=== PATIENT | female | born 1940 | race Caucasian/White ===

== ENCOUNTER → 2024-08-07 10:31 | Outpatient (REF) | payer MEDICARE, BC, SELFPAY | LOC: HWCARD 10:31 | PROVIDERS: ATTENDING PHYSICIAN Pain Medicine Interventional Pain Medicine; FAMILY PHYSICIAN Internal Medicine | DX: Z01.818 Encounter for other preprocedural examination (principal) | CPT/HCPCS: 93005 ==

== ENCOUNTER 2024-11-30 15:58 | Emergency (ER) | payer MEDICARE, BC, SELFPAY ==
[2024-11-30 16:05] VITALS: BP 144/77
--- NOTE | 2024-11-30 19:40 | ED.MUSCINJ ---
HPI-Injury
General
Chief Complaint: Fall
Time Seen by Provider: 11/30/24 19:26
Nursing documentation reviewed up to this point in time: agreed with
History of Present Illness-Injury
Initial Injury comments:
84-year-old female brought to the ER by her daughter for evaluation after she tripped and fell while carrying her groceries. No loss of consciousness. Patient reports that her nose has been bleeding since the fall which occurred just after
lunchtime today. Patient does not take any blood thinners. She denies loss of consciousness. No change in vision. No paresthesias to arms or legs. She denies neck pain. She has been able to ambulate since the fall but is also complaining of
severe pain in her left wrist. She took Tylenol around noon today, no medication since. She is unsure of her last tetanus booster.
Review of Systems
Review of Systems
Allergies reviewed?: Yes
Phy Exam
Physical Exam
Physical Exam:
Patient is awake, alert, appears in no acute distress, significant bruising and swelling noted from mid forehead to bridge of nose, there is a 6 mm full-thickness laceration present on the dorsum of the nose with scant persistent bleeding, no
epistaxis noted, no septal hematoma seen, PERRL, EOMI mucous membranes moist, conjunctiva pink, heart regular rate and rhythm without murmurs or ectopy, lungs are clear to auscultation without wheezes rales or rhonchi, no JVD, abdomen is soft and
nontender on palpation, extremities without edema, GCS is 15 moving extremities symmetrically without focal deficit, left wrist exam reveals severe pain on palpation over distal radius with localized swelling, intact sensation to light touch
symmetric bilateral hands, brisk cap refill present to the digits
Injury Course
Orders/Labs/Results
Orders:
Orders
11/30/24 16:14
CT Cervical Spine W/o Iv Contr Urgent
Comment:
Reason For Exam: fall
CT Facial Bones W/o Iv Contras Urgent
Comment:
Reason For Exam: fall
CT Head W/o Iv Contrast Urgent
Comment:
Reason For Exam: fall
CR Wrist - Left Min 3 Views Urgent
Comment:
Reason For Exam: fall
11/30/24 19:39
Acetaminophen [Tylenol] 1,000 mg PO NOW STA
11/30/24 19:42
Cardiac Monitoring- Treatment ONCE
Splints/Slings/Crut- Treatment ONCE
Location: Left
Type of Splint: Brumley Wrist
Comment: velcro wrist splint
11/30/24 19:52
Tetanus/Diphth/Acelpertussis [Adacel] 0.5 ml IM .ONCE ONE
Procedures
Laceration Closure
Nose:
Status of Wound: clean
Size of Wound in cm: 0.6
Description of Wound Edges: sharp
Preparation: cleaned with saline
Type of Closure: Dermabond-skin glue
MDM/Problems Addressed
Differential Diagnosis Includes:
Differential diagnosis to consider but not limited to intracranial hemorrhage, skull fracture, facial bone fracture, wrist fracture, contusions along with other etiologies considered
*Radiology
Radiology exam reviewed: preliminary read by ED provider (I independently viewed and interpreted x-ray of the left wrist showing a nondisplaced distal radius fracture which appears to be intra-articular) and radiology read reviewed (Bilateral nasal
bone fractures and hematoma present, no intracranial hemorrhage or acute cervical spine fracture seen)
*Pulse Oximetry
SaO2: 98
Oxygen Mode of Delivery: Room air
Patient hypoxic: no
*Critical Care Note
Total Time (30-74mins, 75-104mins- exclusive of procedures): Not Applicable
Update Note
Update Note:
Patient tolerated laceration repair well. I discussed with patient and daughter present at bedside presence of distal radius fracture. I discussed with them use of Velcro resplint and need to follow-up with orthopedics for further evaluation..
Patient has been seen at [facility] previously and will follow-up with their office. Pt given TDAP booster. She expressed understanding of strict return precautions, medication usage at home and anticipated normal healing course of wound.
Patient and daughter present at bedside agree with plan for discharge and had no questions prior to leaving department.
ED Attending Note
-
Portions of this chart may have been created with voice recognition software.� Occasional wrong word or��sound alike� substitutions may have occurred due to the inherent limitations of voice recognition software.
Discharge Plan
Departure
Patient Disposition: Home (Routine Discharge)
Date of Disposition: 11/30/24
Time of Disposition: 19:53
Patient with high blood pressure during this ER visit?: No
Discharge Problem:
Contusion of face, Fracture of nasal bones, Facial laceration, Distal radius fracture, left, Tetanus toxoid vaccination administered at current visit
Instructions: Laceration Repair With Glue (DC), Wound Care (DC), Head Injury in Adults (DC), Diphtheria and Tetanus Toxoids, and Acellular Pertussis Vaccine, Nose Fracture ED, Wrist Fracture
Referrals:
Katerin Keller I., [Active, Orthopedics] - Next open appointment
Discharge Problem: Distal radius fracture, left
PRIVATE,PHYSICIAN [Family Provider, Internal Medicine]
Arvin Martinez MD [Active, Otology] - Follow up in 10 days
Discharge Problem: Fracture of nasal bones
Activity Restrictions/Additional Instructions:
Use extra strength Tylenol 4 times daily as needed for pain. When you are not walking please elevate your hand on a pillow and apply ice for 20 minutes intermittently throughout the day. Please follow-up with your family physician for reevaluation
of your head injury and nasal bone fractures- I have also provided ENT referral information for follow up. Follow-up with orthopedics as discussed. Return to the ER for any concerns
Interventions
Interventions:
*Risk Screen - Suicide Last Done: 11/30/24 16:05
*General Assessment Last Done: 11/30/24 16:05
*ED COVID-19 Vaccine History Last Done: 11/30/24 16:05
*ED Influenza Vaccine History Last Done: 11/30/24 16:05
*Nursing Disposition Last Done: 11/30/24 20:23
ED-Musculoskeletal Assessment Last Done: 11/30/24 17:45
ED- Neurological Assessment Last Done: 11/30/24 17:45
Discharge Date and Time
Discharge Date/Time: 11/30/24 20:23
Print Language: [place]
[2024-11-30] MEDS: TYLENOL 1000 MG PO (19:48)
== END 2024-11-30 20:23 | disposition home or self-care (01) ==
LOC: EMR 15:58
PROVIDERS: EMERGENCY PHYSICIAN Emergency Medicine
DX: S00.03XA Contusion of scalp, initial encounter (principal); S02.2XXA Fracture of nasal bones, initial encounter for closed fracture; S01.81XA Laceration without foreign body of other part of head, initial encounter; S52.592A Other fractures of lower end of left radius, initial encounter for closed fracture; W01.0XXA Fall on same level from slipping, tripping and stumbling without subsequent striking against object, initial encounter
CPT/HCPCS: 12011; 99284; 29125; 70450; 70486; 72125; 73110; 90715